=== PATIENT | female | born 1990 | race African-American/Black ===

== ENCOUNTER 2017-11-14 20:19 | Emergency (ER) | payer BC, OTHER ==
[2017-11-15] MEDS ORDERED: AMOXICILLIN/POTASSIUM CLAVULANATE 875/125MG TAB PO ONE (02:15)
[2017-11-15] MEDS ORDERED: TETANUS, DIPHTHERIA, PERTUSSIS VAC/PF 0.5ML (>7YR OLD) IM ONE (02:15)
[2017-11-15 02:40] VITALS: BP 144/79
== END 2017-11-15 02:47 | disposition home or self-care (01) ==
LOC: ER 20:19
DX: S61.251A Open bite of left index finger without damage to nail, initial encounter (principal); L03.012 Cellulitis of left finger; W54.0XXA Bitten by dog, initial encounter; Y93.89 Activity, other specified; Y92.89 Other specified places as the place of occurrence of the external cause; Z23 Encounter for immunization
CPT/HCPCS: 90471; 90715; 99283; J7030; Z7610